=== PATIENT | male | born 1995 | race Two or more races ===

== ENCOUNTER 2024-12-12 12:48 | Emergency (ER) | payer OTHER ==
[~2024-12-12] VITALS: Ht 167.6 cm; Wt 68.0 kg
[2024-12-12] MEDS ORDERED: MORPHINE SULFATE 4 MG/ML CARTRIDGE IV STA (13:03)
[2024-12-12] MEDS ORDERED: ONDANSETRON HCL 2 MG/ML VIAL IV STA ×2 (13:04→16:51)
[2024-12-12] MEDS ORDERED: FAMOTIDINE/PF 20 MG in 0.9 % SODIUM CHLORIDE 100 ML IV STA (13:05)
[2024-12-12 13:59] LABS: BASO % 0.4 % (0.1-1.2); EOS # 0.12 (0.04-0.54); EOS % 0.8 % (0.7-7.0); LYMPH # 1.25 (1.18-3.74); LYMPH % 8.7 % (19.3-53.1); MEAN PLATELET VOLUME 9.40 fl (9.4-12.4); MONO # 0.71 (0.24-0.82); MONO % 5.0 % (4.7-12.5); NEUT # 12.09 (1.56-6.13); NEUT % 84.7 % (34.0-71.1); RED CELL DISTRIBUTION WIDTH 13.3 % (11.6-14.4)
[2024-12-12 14:27] LABS: ALT/SGPT 50.0 U/L (12-78); AST/SGOT 18.0 U/L (15-37); BILIRUBIN TOTAL 0.52 mg/dL (0.3-1.2); BUN CREA RATIO 14.0 (7.0-25.0); CREATININE SERUM 0.87 mg/dL (0.70-1.30); GFR 105.26; GLOBULINA 3.4 G/DL (2.4-3.5); GLUCOSE FASTING 103.0 mg/dL (65-100); OSMOLALITY SERUM 285.0 MOSM/KG (275-295)
[2024-12-12 16:02] LABS: URINE APPEARANCE Clear; URINE BILIRRUBIN Negative (NEGATIVE); URINE BLOOD Negative; URINE COLOR Yellow; URINE GLUCOSE Negative (NEGATIVE); URINE KETONE Negative (NEGATIVE); URINE LEUKOCYTE Negative; URINE NITRATE Negative; URINE PROTEIN Negative (NEGATIVE); URINE UROBILINOGEN 0.2 E.U./dl
[2024-12-12 16:05] LABS: URINE BACTERIA 14.4 uL (0.0-1933); URINE EPITHELIAL CELLS 1.5 uL (0.0-38.8); URINE RBC 3.9 uL (0.0-20.8); URINE WBC 7.6 uL (0.0-23.2)
[2024-12-12 16:10] LABS: URINE CAST 0.14 uL (0.0-1.40)
[2024-12-12] MEDS ORDERED: ORPHENADRINE CITRATE 30 MG/ML AMPUL IM STA (16:55)
[2024-12-13] MEDS ORDERED: ZOFRAN8 MG PO (18:26)
[2024-12-13] MEDS ORDERED: CARAFATE1 GM PO (18:26)
[2024-12-13] MEDS ORDERED: PEPCID AC20 MG PO (18:26)
== END 2024-12-12 21:58 | disposition home or self-care (01) ==
LOC: ER 13:05
PROVIDERS: General Practice
DX: N23 Unspecified renal colic (principal); N20.0 Calculus of kidney; Z88.8 Allergy status to other drugs, medicaments and biological substances

== ENCOUNTER 2024-12-13 15:17 | Emergency (ER) | payer OTHER ==
[~2024-12-13] VITALS: Ht 180.3 cm; Wt 72.6 kg
[2024-12-13] MEDS ORDERED: FAMOTIDINE/PF 20 MG in 0.9 % SODIUM CHLORIDE 8 ML IV PUSH STA (16:40)
[2024-12-13] MEDS ORDERED: 0.9 % SODIUM CHLORIDE 1,000 ML IV SCH (16:45)
[2024-12-13] MEDS ORDERED: KETOROLAC TROMETHAMINE 30 MG VIAL IV ONE (16:45)
[2024-12-13] MEDS ORDERED: ONDANSETRON HCL 2 MG/ML VIAL IV ONE (16:45)
[2024-12-13] MEDS ORDERED: METHYLPREDNISOLONE SOD SUCC 125 MG VIAL IV ONE (17:00)
[2024-12-13 17:14] LABS: BASO % 0.6 % (0.1-1.2); EOS # 0.06 (0.04-0.54); EOS % 0.6 % (0.7-7.0); LYMPH # 1.08 (1.18-3.74); LYMPH % 10.2 % (19.3-53.1); MEAN PLATELET VOLUME 9.60 fl (9.4-12.4); MONO # 0.69 (0.24-0.82); MONO % 6.5 % (4.7-12.5); NEUT # 8.66 (1.56-6.13); NEUT % 81.8 % (34.0-71.1); RED CELL DISTRIBUTION WIDTH 13.2 % (11.6-14.4)
[2024-12-13 17:46] LABS: ALT/SGPT 41.0 U/L (12-78); AST/SGOT 11.0 U/L (15-37); BILIRUBIN TOTAL 0.55 mg/dL (0.3-1.2); BUN CREA RATIO 11.0 (7.0-25.0); CREATININE SERUM 0.79 mg/dL (0.70-1.30); GFR 117.65; GLOBULINA 3.2 G/DL (2.4-3.5); GLUCOSE FASTING 94.0 mg/dL (65-100); OSMOLALITY SERUM 283.0 MOSM/KG (275-295)
[2024-12-13] MEDS ORDERED: ZOFRAN8 MG PO (18:26)
[2024-12-13] MEDS ORDERED: PEPCID AC20 MG PO (18:26)
[2024-12-13] MEDS ORDERED: CARAFATE1 GM PO (18:26)
== END 2024-12-13 19:05 | disposition home or self-care (01) ==
LOC: ER 15:17
PROVIDERS: General Practice
DX: K29.70 Gastritis, unspecified, without bleeding (principal); Z88.8 Allergy status to other drugs, medicaments and biological substances